=== PATIENT | female | born 1955 | race Caucasian/White ===

== ENCOUNTER 2017-09-24 07:12 | Emergency (ER) | payer BC, MEDICARE ==
[~2017-09-24] VITALS: Ht 157.5 cm; Wt 79.7 kg
[~2017-09-24 07:12] MED LIST: CALCIUM PO; CHOL200024 PO; CLON0.3T47 PO; COLON CLENZ PO; DIAZ5TAB4 PO; ENAL20TA PO; IBUP-1223 PO; IBUP1TAB PO; LOVA10TA PO; MULT-154 PO; OMEP-110 PO; [UNRECOGNIZED DRUG - OTHER] PO; [UNRECOGNIZED DRUG - OTHER] PO
[2017-09-24 07:14] VITALS: BP 148/96
[2017-09-24] MEDS ORDERED: DIPHENHYDRAMINE 25 MG CAPSULE PO ONE (08:00)
[2017-09-24] MEDS ORDERED: FAMOTIDINE 20 MG TABLET PO ONE (08:00)
[2017-09-24] MEDS ORDERED: FAMOTIDINE 20 MG TABLET ONE (08:09)
[2017-09-24] MEDS ORDERED: DIPHENHYDRAMINE 25 MG CAPSULE ONE (08:10)
== END 2017-09-24 09:51 | disposition home or self-care (01) ==
LOC: ED 07:37
DX: T78.3XXA Angioneurotic edema, initial encounter (principal); Y92.89 Other specified places as the place of occurrence of the external cause; E78.00 Pure hypercholesterolemia, unspecified; I10 Essential (primary) hypertension; K21.9 Gastro-esophageal reflux disease without esophagitis; F41.9 Anxiety disorder, unspecified; F17.210 Nicotine dependence, cigarettes, uncomplicated
CPT/HCPCS: 99284; J7512; Q0163